=== PATIENT | female | born 1970 | race Caucasian/White ===

== ENCOUNTER 2019-07-04 07:43 | Day surgery (SDC) | payer MEDICARE, MEDICAID, SELFPAY ==
[2019-06-30 13:14] VITALS: BMI 27.2
--- NOTE | 2019-06-30 13:44 | ANES.PREANES ---
Pre-Anesthetic Assessment Pre-Anesthetic Assessment: Height/Weight: Height 1.57 m Weight 67.585 kg Proposed Procedure: Operation Date: 07/04/19 10:25 Proposed Procedures p Hysteroscopy w/ Ablation w/ Novasure 11700/ N92.1(Not Applicable) - Shekhar Anne MD Social: Social History: Tobacco and No alcohol Exam: Pre-Anes Outpt Exam: alert, oriented x 3 and regular rate & rhythm Additional Exam Findings (including area of procedure): lungs wheezy Airway: Submandibular: WNL Cervical ROM: WNL MP: 2 Dentition: False and Full History/ROS: No significant history except as noted Pulmonary: Pulmonary: COPD and PRITCHARD CV/HEM: CV/HEM: HTN : : None reported Hepatic: Hepatic: None reported GI: GI: GERD (occ) Metabolic: Metabolic: Hyperlipidemia Musc/skel: Musc/skel: Lower Back Pain and OA/DJD Neuropsych: Neuropsych: Anxiety and Depression Anesthetic Plan: ASA status: III Anesthesia: Anesthesia Evaluation and MAC Risk of > 500 ml blood loss (7ml/kg in children): No PFSH Anesthesia PFSH: Family History (Updated 06/30/19 @ 13:01 by [employer]) Father Hypertension Diabetes Grandfather Heart disease paternal Hypertension paternal Grandmother Breast cancer paternal Family/Other Ovarian cancer paternal aunt Mother Diabetes Social History Smoking and tobacco status: current every day smoker cigarettes Packs smoked per day: 1 Alcohol intake: never Substance/Drug Use: never Female Reproductive History: Date of last menstrual period: 06/29/19 Data Anesthesia Cardiac Studies: No Data to Display
[2019-06-30 14:03] LABS: Basophils # 0.1 10^3/uL (0.0-0.1); Basophils % 0.7 %; Eosinophils # 0.1 10^3/uL (0.0-0.8); Hematocrit 40.8 % (37.0-47.0); Hemoglobin 13.7 g/dL (11.5-15.3); Lymphocytes # 2.6 10^3/uL (0.8-4.8); Lymphocytes % 29.2 %; Mean Corpuscular HGB Conc 33.6 g/dL (30.0-36.0); Mean Corpuscular Hemoglobin 31.6 pg (28.0-34.0); Mean Platelet Volume 10.5 fL (7.4-10.4); Monocytes # 0.5 10^3/uL (0.2-0.9); Monocytes % 5.1 %; Neutrophils # 5.6 10^3/uL (1.8-7.7); Neutrophils % 63.5 %; Nucleated Red Blood Cells % 0 %; Platelet Count 290 10^3/cmm (130-400); Red Blood Count 4.34 10^6/uL (4.1-5.3); Red Cell Distribution Width 12.2 % (12.1-15.1); White Blood Count 8.8 10^3/uL (4.0-10.0)
[2019-07-04 08:04] VITALS: BP 115/73; PULSE 84; RESP 18; TEMP -13.2; TEMP 8.3; O2SAT 99
[2019-07-04] MEDS: sodium chloride 0.9% 1,000 ML 30 ML IV (08:24)
[2019-07-04] MEDS: ketorolac 30 mg/mL INJ IVP (08:25)
[2019-07-04 08:35] LABS: OR HCG Qualitative Urine Negative (Negative)
--- NOTE | 2019-07-04 08:40 | P.HPUD_ITS ---
H&P update H&P Update: DATE OF SURGERY/PROCEDURE: 07/04/19 DATE H&P PERFORMED: H&P UPDATE INFORMATION: H&P completed within last 30 days, No changes to prior documentation and H&P is in [facility] [place] on date indicated PREOP DIAGNOSIS: Menorrhagia with irregular cycles PLANNED PROCEDURE: Operation Date: 07/04/19 09:15 Proposed Procedures p Hysteroscopy w/ Ablation w/ Novasure 41824/ N92.1(Not Applicable) - Shekhar Anne MD Full H&P Medications/Allergies: Current Medications: Current Medications Generic Name Dose Route Start Last Admin Trade Name Freq PRN Reason Stop Dose Admin Sodium Chloride 1,000 mls @ 30 ml s/hr 07/04/19 08:00 07/04/19 08:24 Sodium Chloride 0.9% IV 07/05/19 07:59 30 mls/hr .Q24H GRAZYNA Administration Perinent History: Medical/Surgical History: Medical History (Updated 07/02/19 @ 20:54 by Shekhar Anne MD) Back pain (Acute) 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 Chronic obstructive pulmonary disease (Acute) Depression with anxiety (Acute) Fibromyalgia (Acute) Gastroesophageal reflux disease (Acute) Glaucoma (Acute) Bilateral Hyperlipidemia (Acute) Hypertension, essential (Acute) Migraine headache (Acute) Family History: Family History Father Hypertension Diabetes Grandfather Heart disease paternal Hypertension paternal Stroke Paternal Grandmother Breast cancer paternal Family/Other Ovarian cancer paternal aunt Mother Diabetes Social History: Social History Smoking and tobacco status: current every day smoker cigarettes Packs smoked per day: 1 Alcohol intake: never
--- NOTE | 2019-07-04 10:20 | PM.OP ---
Operative Report Date of procedure: 07/04/19 Pre-op Diagnosis: Menorrhagia with irregular cycles Post-op diagnosis: same Procedure Done: Hysteroscopy with endometrial ablation with NovaSure, Paracervical block Specimens removed/disposition: None Surgeon: Shekhar Anne Anesthesia: MAC Estimated blood loss (mL): 2 IV fluids (mL): 700 Complications: None Condition: stable Disposition: other (Home) Brief History: Patient is a 49-year-old white female 3, para 2-0-1-2 with an LMP of 06/29/2019 who presented to the office as a referral from Saray Marquis due to heavy irregular cycles. At her visit she had reported multiple bleeding episodes per month for the last 3 to 4 months. Her last bleeding episode at her evaluation in April had been going on for 45 days. The bleeding would vary from light spotting to heavy and during the heavy time she was passing up to dime size clots. She had also noticed increased cramping with this as well. Ultrasound showed a normal endometrial cavity And findings suspicious for small fibroids. An office hysteroscopy was performed with a normal-appearing endometrial cavity. She had an endometrial biopsy performed which was also negative. At this point patient had decided proceed to endometrial ablation. Procedure: The patient was taken to the operating room where IV sedation was obtained. She was prepped and draped in the usual sterile fashion in the dorsal supine position with legs in Jaciel style stirrups. Sequential compression boots had been placed prior to starting the case. Patient had voided just before coming to the operating room. Exam under anesthesia was performed and the patient was noted to have first to second-degree uterine prolapse. A weighted speculum was placed in the vagina and the cervix was grasped with a single-tooth tenaculum. A paracervical block was performed with a total of 12 mL of 2% lidocaine with epinephrine used. The cervix was serially dilated until a operative hysteroscope could be passed. Crystalloid solution was used as a distention media. The endometrial cavity was inspected and appeared normal. Using the NovaSure sound, endometrial cavity length was measured at 6.0 cm. The NovaSure device was inserted and device was deployed. The device was moved up and down and left and right until no further with adjustment occurred. Uterine width was measured at 4.0 cm. Settings were entered in the NovaSure machine and wattage was set at 132 Jarrett. Cavity integrity check was performed and integrity confirmed. Device was then activated. Total treatment time was 60 seconds. Device was removed. The tenaculum was removed and there was minimal bleeding from the tenaculum site. Patient tolerated the procedure well. Sponge and needle counts were correct. COMPLICATIONS: None FINDINGS: Normal-appearing endometrial cavity. First to second-degree uterine prolapse noted. POSTOPERATIVE STATUS: The patient was transferred to the recovery room in satisfactory condition DISPOSITION: Discharge to home when criteria was met. FOLLOWUP APPOINTMENT: Followup appointment had been scheduled on July 27, 2019 in my office. MEDICATIONS: Patient to continue her usual home medications. She already has prescriptions for pain medications for home.
[2019-07-04 10:25] VITALS: BP 109/67; PULSE 84; RESP 18; TEMP 36.4; O2SAT 98
[2019-07-04 10:55] VITALS: BP 119/81; PULSE 69; RESP 18; O2SAT 100
[2019-07-04 10:58] VITALS: RESP 18
[2019-07-04] MEDS: oxyCODONE-APAP 5-325 mg Tablet PO (10:58)
== END 2019-07-04 11:41 | disposition home or self-care (01) ==
PROVIDERS: Family Provider Nurse Practitioner; PCP Nurse Practitioner; Visit Provider Obstetrics & Gynecology
PROC: 0U598ZZ Destruction of Uterus, Via Natural or Artificial Opening Endoscopic (ICD-10-PCS; CPT 58563; principal; 2019-07-04 09:15)
DX: N92.0 Excessive and frequent menstruation with regular cycle (principal); M79.7 Fibromyalgia; K21.9 Gastro-esophageal reflux disease without esophagitis; Z83.3 Family history of diabetes mellitus; Z82.49 Family history of ischemic heart disease and other diseases of the circulatory system; F17.210 Nicotine dependence, cigarettes, uncomplicated; J44.9 Chronic obstructive pulmonary disease, unspecified; I10 Essential (primary) hypertension; E78.5 Hyperlipidemia, unspecified; M19.90 Unspecified osteoarthritis, unspecified site
CPT/HCPCS: 58563; 12345; 36415; 81025; 84703; 85025; 96365; 96374; J1885; J2001; J2704; J3010; J7030

== ENCOUNTER → 2019-07-19 10:47 | Outpatient (BNVA) | payer MEDICARE, MEDICAID, SELFPAY | PROVIDERS: Family Provider Nurse Practitioner; PCP Nurse Practitioner; Visit Provider Anesthesiology | DX: M54.2 Cervicalgia (principal); M54.9 Dorsalgia, unspecified; F17.210 Nicotine dependence, cigarettes, uncomplicated; Z79.891 Long term (current) use of opiate analgesic | CPT/HCPCS: 99214 ==

== ENCOUNTER → 2019-10-27 10:47 | Outpatient (BNVA) | payer MEDICARE, MEDICAID, SELFPAY | PROVIDERS: Family Provider Nurse Practitioner; PCP Nurse Practitioner; Visit Provider Nurse Practitioner | DX: I10 Essential (primary) hypertension (principal); E55.9 Vitamin D deficiency, unspecified; F41.8 Other specified anxiety disorders; M79.7 Fibromyalgia; E78.5 Hyperlipidemia, unspecified; K21.9 Gastro-esophageal reflux disease without esophagitis; J30.9 Allergic rhinitis, unspecified; R58 Hemorrhage, not elsewhere classified; Z12.39 Encounter for other screening for malignant neoplasm of breast; K59.01 Slow transit constipation | CPT/HCPCS: 80053; 80061; 82306; 82607; 84443; 85025 ==

== ENCOUNTER → 2019-11-21 09:24 | Outpatient (BNVA) | payer MEDICARE, MEDICAID, SELFPAY | PROVIDERS: Family Provider Nurse Practitioner; PCP Nurse Practitioner; Visit Provider Anesthesiology | DX: M54.2 Cervicalgia (principal); M54.41 Lumbago with sciatica, right side; M54.42 Lumbago with sciatica, left side; M54.9 Dorsalgia, unspecified; F17.210 Nicotine dependence, cigarettes, uncomplicated; Z79.891 Long term (current) use of opiate analgesic; Z79.1 Long term (current) use of non-steroidal anti-inflammatories (NSAID) | CPT/HCPCS: 99214 ==

== ENCOUNTER → 2020-01-19 09:03 | Outpatient (BNVA) | payer MEDICARE, MEDICAID, SELFPAY | PROVIDERS: Family Provider Nurse Practitioner; PCP Nurse Practitioner; Visit Provider Anesthesiology | DX: M54.42 Lumbago with sciatica, left side (principal); M54.41 Lumbago with sciatica, right side; M54.9 Dorsalgia, unspecified; F17.210 Nicotine dependence, cigarettes, uncomplicated; Z79.891 Long term (current) use of opiate analgesic; Z71.6 Tobacco abuse counseling | CPT/HCPCS: 99214 ==

== ENCOUNTER 2020-02-01 15:06 | Outpatient (CLI) | payer MEDICARE, MEDICAID, SELFPAY ==
--- NOTE | 2020-02-01 15:45 | US_ITS ---
WS: [id number] Subcutaneous ultrasound of the medial right elbow., 02/01/2020. Clinical Data: Right AC muscle tender and nodule Comparison: None. Findings: Only normal subcutaneous tissue is seen. There are no cysts or masses. There is no fluid retained wit hin the tissues. US/US soft tissue/extremity [id number] Impression: Negative subcutaneous ultrasound of the medial right elbow.
== END 2020-02-01 15:07 | disposition home or self-care (01) ==
LOC: US 15:07
PROVIDERS: PCP Nurse Practitioner; Visit Provider Nurse Practitioner
DX: M79.89 Other specified soft tissue disorders (principal)
CPT/HCPCS: 76882

== ENCOUNTER → 2020-03-14 08:05 | Outpatient (BNVA) | payer MEDICARE, MEDICAID, SELFPAY | PROVIDERS: PCP Nurse Practitioner; Visit Provider Anesthesiology | DX: M54.9 Dorsalgia, unspecified (principal); F17.210 Nicotine dependence, cigarettes, uncomplicated; Z79.891 Long term (current) use of opiate analgesic | CPT/HCPCS: 99213; 99214 ==

== ENCOUNTER → 2020-05-15 09:01 | Outpatient (BNVA) | payer MEDICARE, MEDICAID, SELFPAY | PROVIDERS: PCP Nurse Practitioner; Visit Provider Anesthesiology | DX: M54.42 Lumbago with sciatica, left side (principal); M54.41 Lumbago with sciatica, right side; M54.2 Cervicalgia; M54.9 Dorsalgia, unspecified; F17.210 Nicotine dependence, cigarettes, uncomplicated; Z79.891 Long term (current) use of opiate analgesic; Z79.1 Long term (current) use of non-steroidal anti-inflammatories (NSAID) | CPT/HCPCS: 99213; 99214 ==

== ENCOUNTER → 2020-06-24 15:37 | Outpatient (BNVA) | payer MEDICARE, MEDICAID, SELFPAY | PROVIDERS: PCP Nurse Practitioner; Visit Provider Nurse Practitioner | DX: I10 Essential (primary) hypertension (principal); J44.9 Chronic obstructive pulmonary disease, unspecified | CPT/HCPCS: 80053; 80061; 85025 ==

== ENCOUNTER → 2020-07-16 08:47 | Outpatient (BNVA) | payer MEDICARE, MEDICAID, SELFPAY | PROVIDERS: PCP Nurse Practitioner; Visit Provider Anesthesiology | DX: M54.9 Dorsalgia, unspecified (principal); F17.210 Nicotine dependence, cigarettes, uncomplicated; Z79.891 Long term (current) use of opiate analgesic | CPT/HCPCS: 99213 ==

== ENCOUNTER → 2020-09-10 08:02 | Outpatient (BNVA) | payer MEDICARE, MEDICAID, SELFPAY | PROVIDERS: PCP Nurse Practitioner; Visit Provider Anesthesiology | DX: G89.29 Other chronic pain (principal); M54.9 Dorsalgia, unspecified; M54.2 Cervicalgia; M79.7 Fibromyalgia; F17.210 Nicotine dependence, cigarettes, uncomplicated; Z79.891 Long term (current) use of opiate analgesic | CPT/HCPCS: 99214 ==

== ENCOUNTER → 2020-11-19 08:14 | Outpatient (BNVA) | payer MEDICARE, MEDICAID, SELFPAY | PROVIDERS: PCP Nurse Practitioner; Visit Provider Anesthesiology | DX: G89.29 Other chronic pain (principal); M54.9 Dorsalgia, unspecified; M54.2 Cervicalgia; F17.210 Nicotine dependence, cigarettes, uncomplicated; Z79.891 Long term (current) use of opiate analgesic | CPT/HCPCS: 99214 ==

== ENCOUNTER → 2020-12-06 10:04 | Outpatient (BNVA) | payer MEDICARE, MEDICAID, SELFPAY | PROVIDERS: PCP Nurse Practitioner; Visit Provider Nurse Practitioner | DX: E78.5 Hyperlipidemia, unspecified (principal); J44.9 Chronic obstructive pulmonary disease, unspecified; F41.8 Other specified anxiety disorders; K59.01 Slow transit constipation; T63.441A Toxic effect of venom of bees, accidental (unintentional), initial encounter; J30.1 Allergic rhinitis due to pollen; R07.9 Chest pain, unspecified; G43.909 Migraine, unspecified, not intractable, without status migrainosus; K21.9 Gastro-esophageal reflux disease without esophagitis; E55.9 Vitamin D deficiency, unspecified; M79.7 Fibromyalgia; I10 Essential (primary) hypertension | CPT/HCPCS: 80053; 80061; 81003; 82306; 82607; 84443; 85025 ==

== ENCOUNTER → 2021-01-17 08:44 | Outpatient (BNVA) | payer MEDICARE, MEDICAID, SELFPAY | PROVIDERS: PCP Nurse Practitioner; Visit Provider Nurse Practitioner | DX: G89.29 Other chronic pain (principal); M54.5 Low back pain; M54.2 Cervicalgia; M19.90 Unspecified osteoarthritis, unspecified site; F17.210 Nicotine dependence, cigarettes, uncomplicated; Z79.891 Long term (current) use of opiate analgesic; Z71.6 Tobacco abuse counseling | CPT/HCPCS: 99214 ==

== ENCOUNTER 2021-02-07 07:22 | Outpatient (CLI) | payer MEDICARE, MEDICAID, SELFPAY ==
[2021-02-07 07:38] VITALS: BMI 28.1
--- NOTE | 2021-02-07 07:54 | ECG_ITS ---
[facility] Test Date: 2021-02-07 Pat Name: Shanique Avila Department: Room: Gender: Female Labels Molder: : 1970 Requested By: Nicol Villarreal Order Number: [id number] Aliyah MD: Nicol Villarreal M.D. Interpretive Statements NAME OF STUDY: EXERCISE SESTAMIBI STRESS TEST INDICATION: Chest Pain Baseline blood pressure of 115/71 mm Hg, heart rate of 78 beats per minute and oxygen saturation 97%. EKG showed normal sinus rhythm, right axis deviation with normal ST-Ts. The patient exercised for 3 minutes 46 seconds on a standard Manny protocol. Patient attained a maximum heart rate of 161 beats per minute(94% of the maximum predicted heart rate) with a blood pressure at the peak exercise of 198/72 mm Hg and oxygen saturation 97%. The EKG at the peak exercise revealed sinus tachycardia with no significant ST-T wave changes. Patient did not have any chest pain or any significant arrhythmis with the exercise. Patient experienced lightheadedness and slight chest tightness during recovery and symptoms resolved by discharge. During the recovery phase, there were no new changes. Blood pressure at the end of the recovery phase was 128/68 mm Hg with a heart rate of 92 beats per minute and oxygen saturation 98%. CONCLUSION: 1. Normal EKG response to treadmill exercise. 2. No significant exercise-induced chest pain or cardiac arrhythmia 3. Decreased exercise tolerance for age, attained a maximum of 7 METs. Maximum VO2 of 24.5 mL/kg/min. 4. Baseline normal blood pressure with exaggerated blood pressure and heart rate response to exercise. 5. Perfusion scan will be documented separately. Electronically Signed On 03-27-2021 12:31:58 CDT by Nicol Villarreal M.D. [id number]
--- NOTE | 2021-02-07 07:54 | NMCV_ITS ---
NM sayra perf SPECT r/s* [id number] Shanique Avila Age: 50 Gender: F : 1970 Exam Date: 02/07/2021 08:41 Ordering Phys: Nicol Villarreal MD ([email or web address]) Technologist: MAX Calderon Exam Location: [facility] Indications: CHEST PAIN STRESS TEST Please see separate stress test report in [facility] for full findings IMAGE PROTOCOL Rest/Stress 1 Exercise Day Radiopharmaceutical Dose (mCi) Administration Site Administered by Rest: Tc-99m 10.5 IV MAX Calderon Sestamibi Stress:Tc-99m 32.6 IV MAX Calderon Sestamibi Rest: 60 Discovery 630 Stress: 15 Discovery 630 Radiopharmaceutical was injected at 90% maximum heart rate. Images obtained in supine and prone position. SPECT RESULTS Technical Quality: Excellent Raw Data Analysis: Normal Image Corrections: No attenuation or motion correction applied Summed Stress Score: 0 Summed Rest Score: 0 Summed Difference Score: 0 PERFUSION FINDINGS SPECT images demonstrate homogeneous tracer distribution throughout the myocardium. FUNCTIONAL RESULTS (calculated via Gated SPECT) Stress Image LV EF (%): 78 Stress EDV (mL):65 TID: 0.94 Stress ESV (mL):14 FUNCTIONAL FINDINGS: The left ventricle is normal in size. Transient Ischemia Dilatation of 0.94. There is normal left ventricular systolic function. The left ventricular ejection fraction is normal with a value of 78%. There is normal left ventricular wall thickening with no regional wall motion abnormality. Normal end diastolic and end sytolic volumes. IMPRESSIONS 1. Myocardial perfusion imaging is normal. 2. Overall left ventricular systolic function is normal without regional wall motion abnormalities. 3. The left ventricular ejection fraction is normal with a value of 78%. 4. EKG portion of the study will be reported separately. Nicol Villarreal MD (Electronically Signed) Final Date: 10 February 2021 11:25 S
[2021-02-07 10:00] VITALS: BP 128/68; PULSE 89
== END 2021-02-07 07:23 | disposition home or self-care (01) ==
LOC: CDL 07:24
PROVIDERS: PCP Nurse Practitioner; Visit Provider Internal Medicine Cardiovascular Disease
DX: R07.9 Chest pain, unspecified (principal); R06.09 Other forms of dyspnea
CPT/HCPCS: 78452; 93017; A9500

== ENCOUNTER → 2021-02-12 08:52 | Outpatient (BNVA) | payer MEDICARE, MEDICAID, SELFPAY | PROVIDERS: PCP Nurse Practitioner; Visit Provider Nurse Practitioner | DX: G89.29 Other chronic pain (principal); M54.5 Low back pain; M54.2 Cervicalgia; M19.90 Unspecified osteoarthritis, unspecified site; F17.210 Nicotine dependence, cigarettes, uncomplicated; Z79.891 Long term (current) use of opiate analgesic; Z71.6 Tobacco abuse counseling | CPT/HCPCS: 99213; 99214 ==

== ENCOUNTER → 2021-04-18 08:20 | Outpatient (BNVA) | payer MEDICARE, MEDICAID, SELFPAY | PROVIDERS: PCP Nurse Practitioner; Visit Provider Anesthesiology | DX: G89.29 Other chronic pain (principal); M54.50 Low back pain, unspecified; M54.2 Cervicalgia; M25.519 Pain in unspecified shoulder; Z79.891 Long term (current) use of opiate analgesic; F17.200 Nicotine dependence, unspecified, uncomplicated; Z71.6 Tobacco abuse counseling | CPT/HCPCS: 99214 ==

== ENCOUNTER → 2021-05-27 14:58 | Outpatient (BNVA) | payer MEDICARE, MEDICAID, SELFPAY | PROVIDERS: PCP Nurse Practitioner; Visit Provider Nurse Practitioner | DX: I10 Essential (primary) hypertension (principal) | CPT/HCPCS: 80053; 80061; 84443 ==

== ENCOUNTER → 2021-06-18 08:00 | Outpatient (BNVA) | payer MEDICARE, MEDICAID, SELFPAY | PROVIDERS: PCP Nurse Practitioner; Visit Provider Anesthesiology | DX: G89.29 Other chronic pain (principal); M54.2 Cervicalgia; M54.50 Low back pain, unspecified; F17.210 Nicotine dependence, cigarettes, uncomplicated; Z79.891 Long term (current) use of opiate analgesic | CPT/HCPCS: 99214 ==

== ENCOUNTER → 2021-07-17 07:54 | Outpatient (BNVA) | payer MEDICARE, MEDICAID, SELFPAY | PROVIDERS: PCP Nurse Practitioner; Visit Provider Anesthesiology | DX: G89.29 Other chronic pain (principal); M54.50 Low back pain, unspecified; M54.2 Cervicalgia; F17.210 Nicotine dependence, cigarettes, uncomplicated; Z79.891 Long term (current) use of opiate analgesic | CPT/HCPCS: 99214 ==

== ENCOUNTER → 2021-09-22 10:54 | Outpatient (BNVA) | payer MEDICARE, MEDICAID, SELFPAY | PROVIDERS: PCP Nurse Practitioner; Referring Provider Nurse Practitioner; Visit Provider Specialist | DX: F17.210 Nicotine dependence, cigarettes, uncomplicated (principal); M67.432 Ganglion, left wrist | CPT/HCPCS: 73110; 99203; 99204 ==

== ENCOUNTER 2021-10-28 09:54 | Outpatient (CLI) | payer MEDICARE, MEDICAID, SELFPAY ==
--- NOTE | 2021-10-28 10:15 | MR_ITS ---
WS: [id number] MRI LUMBAR SPINE NONCONTRAST TECHNIQUE: Sagittal T1, T2 and STIR imaging. Axial T1 and T2 imaging. CLINICAL INFORMATION: ABNORMAL REFLEX/RADICULOPATHY LUMBAR REGION COMPARISON: MRI 2015 FINDINGS: Mild lumbar curve. No acute compression. No high-grade central canal stenosis. Alignment is unchanged since 2015. Small central protrusion T8-T9 seen on the automotive glazier imaging with slight contact of the thor acic cord. L1-L2: Minimal annular bulging. Spinal canal and foramen are patent. Mild facet arthropathy. L2-L3: No significant disc bulging. Tiny LEFT foraminal protrusion with mild LEFT foraminal narrowing . Slight narrowing of the LEFT subarticular recess. Mild facet arthropathy. L3-L4: Mild annular bulging. Small LEFT foraminal protrusion with mild LEFT foraminal narrowing. Spin al canal is patent. Mild facet arthropathy. L4-L5: Mild disc bulging with narrowing of subarticular recess bilaterally. Small bilateral foraminal protrusions with mild bilateral foraminal narrowing, LEFT greater than RIGHT. L5-S1: No significant disc bulging. Spinal canal and foramen are patent. Mild facet arthropathy. Partially evaluated RIGHT ovarian follicles/cysts largest measuring 12 mm. MR/MR lumbar spine wo con* [id number] IMPRESSION: 1. Mild lumbar curve. No acute compression. No high-grade central canal stenos is. 2. Small bilateral foraminal protrusions L4-L5 with mild LEFT greater than RIG HT foraminal narrowing. This is similar in appearance to previous. 3. Small foraminal protrusions with mild LEFT L2-L3 and LEFT L3-L4 foraminal n arrowing slightly progressed compared to previous. 4. Moderate facet arthropathy L3-L5. 5. Tiny central protrusion thoracic spine automotive glazier imaging at T8-T9 with slight c ontact of the thoracic cord.
--- NOTE | 2021-10-28 11:45 | MR_ITS ---
WS: [id number] MRI CERVICAL SPINE NONCONTRAST TECHNIQUE: Sagittal T1, T2 and STIR imaging. Axial T2, gradient, and fiesta imaging. CLINICAL INFORMATION: ABNORMAL REFLEX/CERVICAL RADICULOPATHY COMPARISON: MRI 6 FINDINGS: Straightening of the normal cervical lordosis. Mild disc bulging worse at C6-C7 with a tiny annular f issure and small LEFT pericentral protrusion. This appears new from 2008. C2-C3: Mild facet arthropathy. Spinal canal and foramen are patent. C3-C4: Mild disc osteophytic ridging. Mild bilateral bony foraminal narrowing. Mild facet arthropathy . Spinal canal is patent. C4-C5: Mild disc osteophytic ridging. Mild LEFT and no significant RIGHT foraminal narrowing. Mild fa cet arthropathy. Spinal canal is patent. C5-C6: Shallow central disc protrusion. Slight effacement of ventral thecal sac. Mild facet arthropat hy. Mild LEFT and no significant RIGHT bony foraminal narrowing. C6-C7: Shallow LEFT pericentral protrusion with indentation LEFT ventral cervical cord. Mild central canal stenosis. Moderate LEFT and no significant RIGHT foraminal narrowing. Mild facet arthropathy. C7-T1: No significant disc bulging. Mild LEFT and no significant RIGHT bony foraminal narrowing. Mild facet arthropathy. Spinal canal is patent. Visualized brain stem structures: Normal. Prevertebral soft tissues: Normal. MR/MR cervical spin wo con* [id number] IMPRESSION: 1. Straightening of the normal cervical lordosis. Cord signal is normal. 2. LEFT pericentral disc protrusion C6-C7 with a small annular fissure and sli ght contact of the LEFT ventral cervical cord. Mild central canal stenosis at t his level. This is new from 2008. 3. Moderate LEFT C6-C7 bony foraminal narrowing. 4. Shallow central protrusion C5-C6. 5. Mild bony foraminal narrowing LEFT C5-C6.
== END 2021-10-28 09:55 | disposition home or self-care (01) ==
LOC: RAD 09:57
PROVIDERS: PCP Nurse Practitioner; Visit Provider Registered Nurse
DX: M54.12 Radiculopathy, cervical region (principal); M54.16 Radiculopathy, lumbar region; R29.2 Abnormal reflex; Z72.0 Tobacco use; M50.223 Other cervical disc displacement at C6-C7 level; M51.24 Other intervertebral disc displacement, thoracic region; M51.26 Other intervertebral disc displacement, lumbar region; M48.02 Spinal stenosis, cervical region; M47.816 Spondylosis without myelopathy or radiculopathy, lumbar region
CPT/HCPCS: 72141; 72148

== ENCOUNTER → 2021-11-11 09:30 | Outpatient (BNVA) | payer MEDICARE, MEDICAID, SELFPAY | PROVIDERS: PCP Nurse Practitioner; Visit Provider Nurse Practitioner | DX: M25.511 Pain in right shoulder (principal); M25.512 Pain in left shoulder; N83.201 Unspecified ovarian cyst, right side; Z12.39 Encounter for other screening for malignant neoplasm of breast; I10 Essential (primary) hypertension; E55.9 Vitamin D deficiency, unspecified | CPT/HCPCS: 73030; 80053; 80061 ==

== ENCOUNTER 2021-12-11 15:08 | Outpatient (CLI) | payer MEDICARE, MEDICAID, SELFPAY ==
--- NOTE | 2021-12-11 16:00 | MR_ITS ---
WS: [id number] MRI LEFT WRIST without CONTRAST. COMPARISON: Radiograph 09/22/2021. Multiplanar, multisequence imaging is performed without contrast. History: Palpable area LEFT wrist for 2 to 3 months. LEFT hand and arm numbness. Palpable area along the volar radial surface. Surrounding the flexor carpi radialis tendon is increased T2 signal and fluid extending over a lengt h of 2.4 cm. Multilocular collection with a few areas of low signal on the T2 sequences. No edema or tear within the tendon. No tendon tear identified. Multiple small loculations of variable signal inte nsity is noted within the distal fluid collection. There is additional very small cyst along the dorsal surface of the flexor digitorum profundus tendon at the level of the hamate and capitate. The small cyst measures 4 x 3 mm and may be an additional g anglion. TFCC appears intact and normal. Scapholunate ligament is normal. No fractures or marrow renetta a. MR/MR wrist LT wo con* [id number] IMPRESSION: 1. Multi locular cystic mass with a few low-level echoes corresponds to the pa lpable abnormality along the volar surface of the radial side of the wrist. Thi s encases the flexor carpi radialis tendon extends over length of 2.4 cm. Most consistent with a ganglion. Alternative diagnosis would be a nerve sheath tumor although thought less likely. 2. Additional very small ganglion measuring 4 x 3 mm suspected along the dorsa l surface of the flexor digitorum profundus tendon sheath.
== END 2021-12-11 15:09 | disposition home or self-care (01) ==
LOC: RAD 15:08
PROVIDERS: PCP Nurse Practitioner; Visit Provider Specialist
DX: M67.432 Ganglion, left wrist (principal)
CPT/HCPCS: 73221

== ENCOUNTER 2022-01-21 06:45 | Outpatient (CLI) | payer MEDICARE, MEDICAID, SELFPAY ==
--- NOTE | 2022-01-21 07:29 | MM_ITS ---
WS: [email or web address] Bilateral screening 3D tomosynthesis digital mammogram, 01/21/2022 Clinical Data: Z12.39 - Encounter for other screening for malignant neop... Comparison: 03/25/2012, 03/13/2011. Findings: The breast parenchymal pattern shows fibroglandular tissue. No spiculated masses or clustered calcifi cations are seen. There are no secondary signs of carcinoma. MM/[place] [id number] Impression: 1. Negative bilateral mammogram unchanged. 2. Recommend annual screening mammograms. BIRADS: 1-Negative FOLLOW UP: 1 Year Follow-up The CAD aligning checker was used.
== END 2022-01-21 06:46 | disposition home or self-care (01) ==
LOC: RAD 06:46
PROVIDERS: PCP Nurse Practitioner; Visit Provider Nurse Practitioner
DX: Z12.31 Encounter for screening mammogram for malignant neoplasm of breast (principal)
CPT/HCPCS: 77063; 77067

== ENCOUNTER 2022-01-21 06:45 | Outpatient (CLI) | payer MEDICARE, MEDICAID, SELFPAY ==
--- NOTE | 2022-01-21 07:15 | US_ITS ---
WS: [email or web address] Pelvic ultrasound, 01/21/2022 Clinical Data: N83.201 - Unspecified ovarian cyst, right side Comparison: Pelvic ultrasound, 04/11/2019. Findings: The uterus measures 7.7 cm x 4.4 cm x 3.6 cm. Uterus shows heterogeneous echogenicity. The endometrium is 0.5 cm. No intrauterine or abnormal intrauterine mass is seen. The left ovary is obscured by bowel gas. The right ovary measures 3.0 cm x 2.6 cm x 1.1 cm with no cy sts or masses. There is minimal fluid in the cul-de-sac. No abnormal adnexal masses are seen. US/US pelvic with transvaginal Impression: 1. Heterogeneous uterus. 2. Left ovary obscured by bowel gas. 3. Minimal fluid in the cul-de-sac.
== END 2022-01-21 06:46 | disposition home or self-care (01) ==
LOC: RAD 06:46
PROVIDERS: PCP Nurse Practitioner; Visit Provider Nurse Practitioner
DX: N83.201 Unspecified ovarian cyst, right side (principal)
CPT/HCPCS: 76830; 76856

== ENCOUNTER → 2022-02-12 14:59 | Outpatient (BNVA) | payer MEDICARE, MEDICAID, SELFPAY | PROVIDERS: PCP Nurse Practitioner; Referring Provider Specialist; Visit Provider Specialist | DX: M67.432 Ganglion, left wrist (principal); M25.532 Pain in left wrist | CPT/HCPCS: 95908; 95909 ==

== ENCOUNTER → 2022-02-23 10:51 | Outpatient (BNVA) | payer MEDICARE, MEDICAID, SELFPAY | PROVIDERS: PCP Nurse Practitioner; Visit Provider Specialist | DX: M67.432 Ganglion, left wrist (principal) | CPT/HCPCS: 99214 ==

== ENCOUNTER → 2022-03-17 11:34 | Outpatient (BNVA) | payer MEDICARE, MEDICAID, SELFPAY | PROVIDERS: PCP Nurse Practitioner; Visit Provider Nurse Practitioner | DX: J44.9 Chronic obstructive pulmonary disease, unspecified (principal); E78.5 Hyperlipidemia, unspecified; F41.8 Other specified anxiety disorders; E55.9 Vitamin D deficiency, unspecified; I10 Essential (primary) hypertension; R58 Hemorrhage, not elsewhere classified; M79.7 Fibromyalgia; R00.0 Tachycardia, unspecified; J30.1 Allergic rhinitis due to pollen; K59.01 Slow transit constipation; K21.9 Gastro-esophageal reflux disease without esophagitis | CPT/HCPCS: 80053; 80061; 82306; 83721; 84443 ==

== ENCOUNTER 2022-04-13 08:33 | Outpatient (CLI) | payer MEDICARE, MEDICAID, SELFPAY ==
--- NOTE | 2022-04-13 08:38 | MR_ITS ---
WS: [email or web address] INDICATION: Mass in the wrist. Swelling 3rd finger with numbness. TECHNIQUE: Axial T1, axial T2, coronal T1, coronal STIR, sagittal T2, axial T2, coronal 3-D FSPGR, mu ltiplanar post gadolinium imaging with fat saturation technique. COMPARISON: MRI December 11, 2021 FINDINGS: Previously described tiny cyst along the dorsal flexor digitorum profundus tendons at the l evel of the carpal bones is no longer seen today. T2 signal abnormality along the flexor carpi radial is with peripheral enhancement is unchanged in appearance. A few associated septations. This likely r epresents small ganglion cyst. No suspicious abnormalities along the additional palpable marker at the level of the 3rd proximal pha lanx. Normal underlying soft tissues. TFCC appears intact. Normal scaphoid and lunate. Normal scapholunate ligaments. MR/MR hand LT wo/w con [id number] IMPRESSION: 1. Previously described tiny cyst along the dorsal flexor digitorum digitorum profundus at the level of the carpal bones is no longer seen today. 2. Stable peripherally enhancing ganglion cyst along the flexor carpi radialis unchanged in appearance. 3. No suspicious abnormalities alonga the additional palpable marker at the le shasha of the 3rd proximal phalanx. Normal underlying soft tissues and bone marrow signal.
[2022-04-13] MEDS: gadobenate dimeglumine 20 mL vial IV (10:43)
== END 2022-04-13 08:34 | disposition home or self-care (01) ==
LOC: RAD 08:34
PROVIDERS: PCP Nurse Practitioner; Visit Provider Specialist
DX: M67.432 Ganglion, left wrist (principal); M19.90 Unspecified osteoarthritis, unspecified site
CPT/HCPCS: 73220

== ENCOUNTER → 2022-06-22 10:02 | Outpatient (BNVA) | payer MEDICARE, MEDICAID, SELFPAY | PROVIDERS: PCP Nurse Practitioner; Visit Provider Nurse Practitioner | DX: E78.5 Hyperlipidemia, unspecified (principal); E55.9 Vitamin D deficiency, unspecified | CPT/HCPCS: 80053; 80061; 82306; 84443 ==

== ENCOUNTER → 2022-09-14 09:34 | Outpatient (BNVA) | payer MEDICARE, MEDICAID, SELFPAY | PROVIDERS: PCP Nurse Practitioner; Visit Provider Nurse Practitioner | DX: I10 Essential (primary) hypertension (principal); E55.9 Vitamin D deficiency, unspecified | CPT/HCPCS: 80053; 80061; 82306 ==

== ENCOUNTER 2023-01-26 09:51 | Outpatient (CLI) | payer MEDICARE, MEDICAID, SELFPAY ==
--- NOTE | 2023-01-26 09:57 | MM_ITS ---
WS: [email or web address] BILATERAL 3D TOMOSYNTHESIS DIGITAL SCREENING MAMMOGRAPHY WITH CAD CLINICAL INFORMATION: SCREENING HISTORY: Screening mammogram. No current complaints. COMPARISON: 2021 TECHNIQUE: Bilateral CC and MLO views. FINDINGS: Scattered fibroglandular densities bilaterally. Lucent centered calcification LEFT breast. Incidental punctate calcifications. Slightly spiculated lesion upper outer RIGHT breast measuring 7 mm. Recomme nd further evaluation with RIGHT breast diagnostic mammography and ultrasound. LEFT breast is unchanged. IMPRESSION: MM/[place] [id number] BI-RADS: 0-Incomplete: Need additional imaging evaluation FOLLOW UP: Need Additional Imaging Recommend RIGHT breast diagnostic mammography and ultrasound.
== END 2023-01-26 09:52 | disposition home or self-care (01) ==
LOC: RAD 09:55 → MOBLMAM 09:56
PROVIDERS: PCP Nurse Practitioner; Visit Provider Nurse Practitioner
DX: Z12.31 Encounter for screening mammogram for malignant neoplasm of breast (principal)
CPT/HCPCS: 77063; 77067

== ENCOUNTER → 2023-03-01 09:00 | Outpatient (BNVA) | payer MEDICARE, MEDICAID, SELFPAY | PROVIDERS: PCP Nurse Practitioner; Visit Provider Nurse Practitioner | DX: E66.3 Overweight (principal); J44.9 Chronic obstructive pulmonary disease, unspecified; F41.8 Other specified anxiety disorders; E55.9 Vitamin D deficiency, unspecified; N95.1 Menopausal and female climacteric states; E78.5 Hyperlipidemia, unspecified; I10 Essential (primary) hypertension; R58 Hemorrhage, not elsewhere classified; M79.7 Fibromyalgia; E88.81 Metabolic syndrome and other insulin resistance; R00.0 Tachycardia, unspecified; K59.01 Slow transit constipation; K21.9 Gastro-esophageal reflux disease without esophagitis; G43.909 Migraine, unspecified, not intractable, without status migrainosus; M19.90 Unspecified osteoarthritis, unspecified site | CPT/HCPCS: 80053; 80061; 82306; 83735 ==

== ENCOUNTER 2023-04-15 13:25 | Outpatient (CLI) | payer MEDICARE, MEDICAID, SELFPAY ==
--- NOTE | 2023-04-15 13:34 | MM_ITS ---
WS: [email or web address] RIGHT 3D TOMOSYNTHESIS DIGITAL MAMMOGRAPHY WITH CAD CLINICAL INFORMATION: R92.8 - Other abnormal and inconclusive findings on diagn... HISTORY: Additional views COMPARISON: 01/26/2023 TECHNIQUE: 3 views of the right breast were obtained. FINDINGS: Scattered fibroglandular densities of the right breast. Previously described slightly spiculated asym metric density upper outer quadrant RIGHT breast measuring 7 mm mostly compresses out on the spot com pression views today. Ultrasound described below. ULTRASOUND BREAST RIGHT TECHNIQUE: Ultrasound right breast focused area of concern. CLINICAL INFORMATION: R92.8 - Other abnormal and inconclusive findings on diagn... FINDINGS: Ultrasound RIGHT breast upper outer quadrant. Normal underlying parenchymal tissue. No cystic or hamilton d lesions. No suspicious lesions to target for biopsy. Recommend return to annual screen mammography IMPRESSION: MM/[place] [id number] BI-RADS: 2-Benign FOLLOW UP: 1 Year Follow-up Recommend return to annual screening mammography.
--- NOTE | 2023-04-15 14:00 | US_ITS ---
WS: [email or web address] RIGHT 3D TOMOSYNTHESIS DIGITAL MAMMOGRAPHY WITH CAD CLINICAL INFORMATION: R92.8 - Other abnormal and inconclusive findings on diagn... HISTORY: Additional views COMPARISON: 01/26/2023 TECHNIQUE: 3 views of the right breast were obtained. FINDINGS: Scattered fibroglandular densities of the right breast. Previously described slightly spiculated asym metric density upper outer quadrant RIGHT breast measuring 7 mm mostly compresses out on the spot com pression views today. Ultrasound described below. ULTRASOUND BREAST RIGHT TECHNIQUE: Ultrasound right breast focused area of concern. CLINICAL INFORMATION: R92.8 - Other abnormal and inconclusive findings on diagn... FINDINGS: Ultrasound RIGHT breast upper outer quadrant. Normal underlying parenchymal tissue. No cystic or hamilton d lesions. No suspicious lesions to target for biopsy. Recommend return to annual screen mammography IMPRESSION: US/US breast RT limited* [id number] BI-RADS: 2-Benign FOLLOW UP: 1 Year Follow-up Recommend return to annual screening mammography.
== END 2023-04-15 13:26 | disposition home or self-care (01) ==
LOC: RAD 13:26
PROVIDERS: PCP Nurse Practitioner; Visit Provider Nurse Practitioner
DX: R92.8 Other abnormal and inconclusive findings on diagnostic imaging of breast (principal)
CPT/HCPCS: 76642; 77061; G0279

== ENCOUNTER → 2023-07-26 16:11 | Outpatient (BNVA) | payer MEDICARE, MEDICAID, SELFPAY | PROVIDERS: PCP Nurse Practitioner; Visit Provider Nurse Practitioner | DX: R10.9 Unspecified abdominal pain (principal) | CPT/HCPCS: 74018 ==

== ENCOUNTER → 2023-08-09 10:36 | Outpatient (BNVA) | payer MEDICARE, MEDICAID, SELFPAY | PROVIDERS: PCP Nurse Practitioner; Visit Provider Nurse Practitioner | DX: F41.8 Other specified anxiety disorders; I10 Essential (primary) hypertension; E55.9 Vitamin D deficiency, unspecified | CPT/HCPCS: 80053; 80061; 82306; 82607; 84443; 85025 ==

== ENCOUNTER → 2024-02-22 09:38 | Outpatient (BNVA) | payer MEDICARE, MEDICAID, SELFPAY | PROVIDERS: PCP Nurse Practitioner; Visit Provider Nurse Practitioner | DX: I10 Essential (primary) hypertension (principal); E78.5 Hyperlipidemia, unspecified | CPT/HCPCS: 80053; 80061; 84443; 85025 ==

== ENCOUNTER → 2024-08-01 11:05 | Outpatient (BNVA) | payer MEDICARE, MEDICAID, SELFPAY | PROVIDERS: PCP Nurse Practitioner; Visit Provider Nurse Practitioner | DX: E78.5 Hyperlipidemia, unspecified (principal); I10 Essential (primary) hypertension; E55.9 Vitamin D deficiency, unspecified | CPT/HCPCS: 80053; 80061; 82306; 82607; 84443 ==

== ENCOUNTER 2024-10-04 18:53 | Emergency (ER) | payer OTHER, MEDICAID, SELFPAY ==
[2024-10-04 19:01] VITALS: BP 132/57; PULSE 105; TEMP 36.5; O2SAT 97; BMI 28.5
--- NOTE | 2024-10-04 19:10 | ECG_ITS ---
[facility] [place] Date: 2024-10-04 Pat Name: Shanique Avila Department: Room: Gender: Female [employer]: : 1970 Requested By: Hayley Neal Order Number: [id number] Aliyah MD: Suhail Choi M.D. Measurements Intervals [place] Rate: 66 P: 52 NE: 171 QRS: 73 QRSD: 91 T: 57 QT: 391 QTc: 412 Interpretive Statements SINUS RHYTHM LOW QRS VOLTAGE IN PRECORDIAL LEADS [QRS DEFLECTION < 1.0 mV IN CHEST LEADS] No previous ECG available for comparison Electronically Signed On 10-09-2024 10:15:16 CDT by Suhail Choi M.D. [email or web address]
--- NOTE | 2024-10-04 19:23 | CTR_ITS ---
PROCEDURE INFORMATION: Exam: CTA Chest With Contrast Exam date and time: 10/04/2024 7:47 PM Age: 54 years old Clinical indication: Pain; Chest pressure; Additional info: Left shoulder pain, pcp concerned for pe TECHNIQUE: Imaging protocol: Computed tomographic angiography of the chest with contrast. Exam focused on the arteries. 3D rendering (Not supervised by radiologist): MIP and/or 3D reconstructed images were created by the technologist. Radiation optimization: All CT scans at this facility use at least one of these dose optimization techniques: automated exposure control; mA and/or kV adjustment per patient size (includes targeted exams where dose is matched to clinical indication); or iterative reconstruction. Contrast material: OMNIPAQUE 350; Contrast volume: 100 ml; Contrast route: INTRAVENOUS (IV); COMPARISON: MR cervical spin wo con* [id number] 10/28/2021 10:35 AM RADIATION DOSE METRICS: Total DLP (mGy-cm): 384.08 FINDINGS: Pulmonary arteries: Normal. No pulmonary emboli. Aorta: Unremarkable. No aortic aneurysm. No aortic dissection. Lungs: Mild centrilobular emphysema with upper lobe predominance. No focal consolidation. 5 mm right lower lobe nodule on series 7, image 225. Mild bibasilar atelectasis. Bronchial wall thickening with scattered inspissated secretions, most pronounced in the lower lobes. Pleural spaces: Unremarkable. No pneumothorax. No pleural effusion. Heart: Unremarkable. No cardiomegaly. No pericardial effusion. Lymph nodes: Calcified right hilar lymph nodes. No lymphadenopathy by size criteria. Spleen: Benign calcified splenic granulomas. Bones/joints: Moderate degenerative changes of the mid to lower thoracic spine. No acute or aggressive osseous lesion. Soft tissues: Unremarkable. CT/CT angio chest PE protcl [id number] IMPRESSION: 1. No evidence of pulmonary embolism. 2. Bronchial wall thickening with inspissated secretions in the lower lobes. 3. Mild centrilobular emphysema. 4. 5 mm right lower lobe nodule. For patients at low risk (minimal or absent history of smoking and of other known risk factors), no routine follow-up is indicated. For patients at high risk (history of smoking or of other known risk factors), consider optional CT Chest at 12 months. (Reference: Lydia) COMMENTS: The presence of pulmonary emphysema on CT is an independent risk factor for lung cancer. In the absence of a history or active diagnosis of lung cancer, it is recommended that this patient with emphysema be evaluated for enrollment in a low dose CT lung cancer screening program. REFERENCES: Lydia Wright, et al. Guidelines for Management of Incidental Pulmonary Nodules Detected on CT Images: From the Fleischner Society 2017. Radiology. 2017;284(1):228-243.
--- NOTE | 2024-10-04 19:23 | W.ED.EXTPRO ---
HPI - Extremity Problem General: Chief complaint: Extremity Problem,Nontraumatic Stated complaint: Left Shoulder and Jaw Pain Time Seen by Provider: 10/04/24 19:12 History of Present Illness: 54-year-old female with a history of tobacco dependence, COPD, chronic pain syndrome on oxycodone, hypertension, migraines, depression and anxiety, hypertension and chronic shoulder pain who presents to the emergency room with shoulder pain. She saw her PCP yesterday who thought she might have a PE. She has had no shortness of breath. She is not tachycardic. O2 sats are good. She is not short of breath. She says pain in her shoulder is positional. Worse when her arm is down or moved. But better when she holds her arm above her head. No fevers. No cough. No altered mental status. No abdominal pain. No nausea or vomiting. She was told to go to the emergency room yesterday when she went saw her PCP but it was raining too hard so she came to the emergency room tonight. Related Data Home Medications ?Medication ?Instructions ?Recorded ?Confirmed melatonin 3 mg capsule 3 mg PO ONCE 06/28/19 10/03/24 Previous Rx's ?Medication ?Instructions ?Recorded travoprost 0.004 % eye drops 1 drp ophthalmic (eye) ONCE #5 mL 04/03/22 (Travatan Z) epinephrine 0.3 mg/0.3 mL 0.3 mg (0.3 mL) IM ONCE PRN 09/14/22 injection, auto-injector (EpiPen Allergic Reaction #1 ea 2-Arthur) nitroglycerin 0.4 mg sublingual 0.4 mg sublingual Q5M PRN chest 05/28/23 tablet pain #25 tabs sumatriptan succinate 4 mg/0.5 mL 4 mg (0.5 mL) SUBCUT .one time PRN 08/09/23 subcutaneous cartridge (refill) Migraine Headache #1 mL sodium chloride 0.65 % nasal spray 2 spray intranasal QID PRN dry 10/25/23 aerosol (Saline Nasal) nasal passages #44 mL albuterol sulfate 2.5 mg/3 mL 2.5 mg (3 mL) inhalation Q4H PRN 05/16/24 (0.083 %) solution for nebulization Shortness Of Breath #75 mL albuterol sulfate 90 mcg/actuation 2 puff inhalation QID PRN 05/16/24 aerosol inhaler (Ventolin HFA) Shortness Of Breath #18 grams doxepin 25 mg capsule 25 mg PO TID PRN anxiety #90 caps 05/16/24 ergocalciferol (vitamin D2) 1,250 1,250 mcg PO .weekly #4 caps 05/16/24 mcg (50,000 unit) capsule estradiol 1 mg tablet (Estrace) 1 mg PO DAILY #30 tabs 05/16/24 furosemide 20 mg tablet (Lasix) 20 mg PO QAM #30 tabs 05/16/24 hydrocortisone 2.5 % topical cream 1 applic PA TID PRN hemorrhoids 05/16/24 with perineal applicator #30 grams (Anusol-HC) icosapent ethyl 1 gram capsule 2 g (2 x 1 gram) PO BID #120 caps 05/16/24 (Vascepa) linaclotide 145 mcg capsule 145 mcg PO QAM #30 caps 05/16/24 (Linzess) magnesium oxide 400 mg PO BID #60 tabs 05/16/24 metformin 500 mg tablet,extended 2,000 mg (4 x 500 mg) PO DAILY 05/16/24 release 24 hr #120 tabs metoprolol succinate 25 mg 25 mg PO DAILY #30 tabs 05/16/24 tablet,extended release 24 hr (Toprol XL) montelukast 10 mg tablet 10 mg PO QDAY #30 tabs 05/16/24 pantoprazole 40 mg tablet,delayed 40 mg PO DAILY #30 tabs 05/16/24 release (Protonix) potassium chloride 8 mEq 8 meq PO DAILY #30 caps 05/16/24 capsule,extended release sucralfate 1 gram tablet (Carafate) 1 g PO .4 times day #120 tabs 05/16/24 tizanidine 4 mg tablet 4 mg PO BID PRN muscle spasticity 05/16/24 #60 tabs zonisamide 50 mg capsule 50 mg PO BID #60 caps 05/16/24 prednisone 20 mg tablet See Rx Instructions PO BID #18 tabs 07/25/24 budesonide 160 mcg-glycopyr 9 2 inh inhalation BID #10.7 grams 08/01/24 mcg-formot 4.8 mcg/actuation HFA inhaler (Breztri Aerosphere) cholecalciferol (vitamin D3) 125 5,000 unit PO QDAY #30 caps 08/01/24 mcg (5,000 unit) capsule venlafaxine 150 mg 150 mg PO DAILY #30 caps 08/01/24 capsule,extended release 24 hr (Effexor XR) rosuvastatin 40 mg tablet 40 mg PO DAILY #30 tabs 08/03/24 oxycodone 10 mg tablet 10 mg PO QID PRN pain 30 days #120 09/08/24 tabs dexamethasone 6 mg tablet 6 mg PO DAILY 5 days #5 tabs 10/04/24 Allergies Allergy/AdvReac Type Severity Reaction Status Date / Time dextromethorphan (From Allergy Severe anaphylaxis Verified 10/04/24 19:07 NyQuil) doxylamine (From NyQuil) Allergy Severe anaphylaxis Verified 10/04/24 19:07 pseudoephedrine (From NyQuil) Allergy Severe anaphylaxis Verified 10/04/24 19:07 doxycycline Allergy Hives, Verified 10/04/24 19:07 difficulty breathing Review of Systems Narrative: Constitutional symptoms: Negative except as documented in HPI. Skin symptoms: Negative except as documented in HPI. Eye symptoms: Negative except as documented in HPI. ENMT symptoms: Negative except as documented in HPI. Respiratory symptoms: Negative except as documented in HPI. Cardiovascular symptoms: Negative except as documented in HPI. Gastrointestinal symptoms: Negative except as documented in HPI. Genitourinary symptoms: Negative except as documented in HPI. Musculoskeletal symptoms: Negative except as documented in HPI. Neurologic symptoms: Negative except as documented in HPI. Psychiatric symptoms: Negative except as documented in HPI. Endocrine symptoms: Negative except as documented in HPI. PFSH ED PFSH: Medical History Melena Chronic idiopathic constipation Metabolic syndrome Spondylosis Spinal osteophytosis Tachycardia Chronic shoulder pain Chronic neck and back pain Personal history of nicotine dependence Allergic reaction to bee sting Encounter for long-term (current) use of NSAIDs Vitamin D deficiency Other specified anxiety disorders Allergic rhinitis due to pollen Slow transit constipation Opioid contract exists Encounter for long-term use of opiate analgesic Glaucoma Bilateral Chronic obstructive pulmonary disease Gastroesophageal reflux disease Migraine headache Depression with anxiety Hypertension, essential Hyperlipidemia Back pain Multilevel Fibromyalgia 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 Dx: Menorrhagia. [place] [facility] [place] post surgery (~01/2019) Removal of 2 benign tumors from back Status post eye surgery (03/29/18) Removal of cancer from right eye History of surgery on arm (~2011) Left History of surgery on arm (~2006) Right S/P section (~1990) Hx of tonsillectomy Family History Father Hypertension Diabetes Grandfather Heart disease paternal Hypertension paternal Stroke Paternal Grandmother Breast cancer paternal Family/Other Ovarian cancer paternal aunt Mother Diabetes Social History Smoking and tobacco/nicotine status: current every day tobacco/nicotine user cigarettes Packs smoked per day: 1 Second hand smoke exposure: Yes Alcohol intake: never Substance/Drug Use: never Adopted: No Caregiver/support person: No Lives independently: Yes Household members: spouse Housing: House Marital status: Number of children: 2 service: No Current occupational status: disabled Pets and animals: Yes Do you think of yourself as: Straight/Heterosexual Current gender identity: Female Physical Exam Narrative: EXAM NARRATIVE: General: Alert, no acute distress. Skin: Warm, dry. Head: Normocephalic, atraumatic. Neck: Supple, trachea midline. Eye: Extraocular movements are intact. Ears, nose, mouth and throat: mucosa moist. Cardiovascular: Regular, Normal peripheral perfusion. Respiratory: Lungs are clear to auscultation, respirations are non-labored, breath sounds are equal, Symmetrical chest wall expansion. Gastrointestinal: Soft, Nontender, Non distended Musculoskeletal: Normal ROM, no deformity. Neurological: Alert and oriented, No focal neurological deficit observed. Psychiatric: Cooperative, appropriate mood & affect. Course Vital Signs: Vital signs: Vital Signs Temperature 97.7 F 10/04/24 19:01 Pulse Rate 105 H 10/04/24 19:01 Blood Pressure 132/57 10/04/24 19:01 Pulse Oximetry 97 10/04/24 19:01 Oxygen Delivery Me thod Room Air 10/04/24 19:01 MDM - Extremity (Nontraumatic) Medical Decision Making Differential diagnosis for patient with chest pain includes but is not limited to and based on the above HPI, review of systems and physical exam: Pneumonia. unstable angina. angina. Acute coronary syndrome / AK. Pulmonary embolism. Costochondritis / musculoskeletal. Pleurisy. Pericarditis. Esophageal spasm. Pancreatis. Cholecystitis. Orders placed to evaluate differential diagnosis based on the above differential, HPI and physical exam EKG: Time 1909. Rate 66. Normal sinus rhythm, No ST-T changes, no ectopy, normal PA & QRS intervals, This was reviewed and interpreted by myself the ER physician at 191 Lab Review: Laboratory results were reviewed and interpreted by myself the emergency room physician. No leukocytosis. No anemia. No renal failure. proBNP is negative. Liver enzymes are normal. CT of the chest PE protocol: No pulmonary embolism. Some bronchial wall thickening and emphysema. Pulmonary nodule. This was reviewed and interpreted by myself the emergency room physician. I also reviewed the radiology report. I reviewed the patient's medical record. Reexamination: Patient remained stable. No increased work of breathing. No altered mental status. No focal motor deficits. Assessment and plan: Shoulder pain Tobacco dependence ? Solu-Medrol and Toradol in the emergency room. Patient is on oxycodone therapy at home. - Discharged home - Discussed plan with patient. Answered any questions. - Evaluation and treatment of this problem were appropriate in the emergency setting. Lab Data 10/04/24 19:19 10/04/24 19:19 Radiology Impressions Chest CTA 10/04/24 19:23 IMPRESSION: 1. No evidence of pulmonary embolism. 2. Bronchial wall thickening with inspissated secretions in the lower lobes. 3. Mild centrilobular emphysema. 4. 5 mm right lower lobe nodule. For patients at low risk (minimal or absent history of smoking and of other known risk factors), no routine follow-up is indicated. For patients at high risk (history of smoking or of other known risk factors), consider optional CT Chest at 12 months. (Reference: Lydia) COMMENTS: The presence of pulmonary emphysema on CT is an independent risk factor for lung cancer. In the absence of a history or active diagnosis of lung cancer, it is recommended that this patient with emphysema be evaluated for enrollment in a low dose CT lung cancer screening program. REFERENCES: Lydia Wright et al. Guidelines for Management of Incidental Pulmonary Nodules Detected on CT Images: From the Fleischner Society 2017. Radiology. 2017;284(1):228-243. Laboratory Results WBC 10.00 10^3/uL (3.29-11.43) 10/04/24 19:19 RBC 4.40 10^6/uL (3.85-5.65) 10/04/24 19:19 Hgb 13.40 g/dL (11.27-16.99) 10/04/24 19:19 Hct 41.0 % (36-47) 10/04/24 19:19 MCV 93.2 fl (85-98) 10/04/24 19:19 MCH 30.5 pg (27-33) 10/04/24 19:19 MCHC 32.7 g/dL (30-55) 10/04/24 19:19 RDW 12.6 % (12.1-15.1) 10/04/24 19:19 Plt Count 261 10^3/cmm (157-399) 10/04/24 19:19 MPV 10.0 fL (7.4-10.4) 10/04/24 19:19 Neut % (Auto) 54.0 % 10/04/24 19:19 Lymph % (Auto) 36.8 % 10/04/24 19:19 Stephens % (Auto) 5.9 % 10/04/24 19:19 Eos % (Auto) 2.0 % 10/04/24 19:19 Baso % (Auto) 1.0 % 10/04/24 19:19 Neut # (Auto) 5.40 10^3/uL (1.8-7.7) 10/04/24 19:19 Lymph # (Auto) 3.7 10^3/uL (0.8-4.8) 10/04/24 19:19 Stephens # (Auto) 0.6 10^3/uL (0.2-0.9) 10/04/24 19:19 Eos # (Auto) 0.2 10^3/uL (0.0-0.8) 10/04/24 19:19 Baso # (Auto) 0.1 10^3/uL (0.0-0.1) 10/04/24 19:19 Nucleated RBC % (auto) 0 % 10/04/24 19:19 Nucleated RBCs # 0.0 /100WBC 10/04/24 19:19 Sodium 139 mmol/L (136-145) 10/04/24 19:19 Potassium 3.8 mmol/L (3.5-5.1) 10/04/24 19:19 Chloride 106 mmol/L (98-107) 10/04/24 19:19 Carbon Dioxide 19 mmol/L (22-29) L 10/04/24 19:19 Anion Gap 17.8 (5-19) 10/04/24 19:19 BUN 8 mg/dL (6-20) 10/04/24 19:19 Creatinine 0.8 mg/dL (0.5-0.9) 10/04/24 19:19 GFR Calculation 75.0 mL/min (90-130) L 10/04/24 19:19 Glucose 106 mg/dL (65-115) 10/04/24 19:19 Calculated Osmolality 287 mOsm/kg (285-295) 10/04/24 19:19 Lactic Acid 1.9 mmol/L (0.5-2.2) 10/04/24 19:19 Calcium 9.1 mg/dL (8.5-10.5) 10/04/24 19:19 Total Bilirubin 0.2 mg/dL (0.15-1.2) 10/04/24 19:19 AST 15 U/L (0-32) 10/04/24 19:19 ALT 17 U/L (0-33) 10/04/24 19:19 Alkaline Phosphatase 79 U/L (35-105) 10/04/24 19:19 Troponin T Baseline < 6 ng/L (0-10) 10/04/24 19:19 NT-Pro-B Natriuret Pep 49 pg/mL (0-125) 10/04/24 19:19 Total Protein 6.6 g/dL (6.6-8.7) 10/04/24 19:19 Albumin 4.4 g/dL (3.5-5.2) 10/04/24 19:19 Globulin 2.2 g/dL (1.3-4.6) 10/04/24 19:19 All radiology interpretation(s) finalized by discharge Discharge Plan Discharge Patient Disposition: Home Clinical Impression: Pulmonary nodule, Shoulder pain, left Condition: Stable Prescriptions: New dexamethasone 6 mg tablet 6 mg PO DAILY 5 Days Qty: 5 0RF No Action melatonin 3 mg capsule 3 mg PO ONCE Travatan Z 0.004 % drops 1 drp ophthalmic (eye) ONCE Qty: 5 5RF epinephrine [EpiPen 2-Arthur] 0.3 mg/0.3 mL auto-injector 0.3 mg IM ONCE PRN (Reason: Allergic Reaction) Qty: 1 2RF Saline Nasal 0.65 % aerosol,spray 2 spray intranasal QID PRN (Reason: dry nasal passages) Qty: 44 2RF albuterol sulfate 2.5 mg /3 mL (0.083 %) solution for nebulization 2.5 mg INHALATION Q4H PRN (Reason: Shortness Of Breath) Qty: 75 5RF albuterol sulfate [Ventolin HFA] 90 mcg/actuation HFA aerosol inhaler 2 puff INHALATION QID PRN (Reason: Shortness Of Breath) Qty: 18 5RF doxepin 25 mg capsule 25 mg PO TID PRN (Reason: anxiety) Qty: 90 5RF ergocalciferol (vitamin D2) 1,250 mcg (50,000 unit) capsule 1,250 mcg PO .weekly Qty: 4 5RF estradiol [Estrace] 1 mg tablet 1 mg PO DAILY Qty: 30 5RF furosemide [Lasix] 20 mg tablet 20 mg PO QAM Qty: 30 5RF hydrocortisone [Anusol-HC] 2.5 % cream with perineal applicator 1 applic PA TID PRN (Reason: hemorrhoids) Qty: 30 5RF icosapent ethyl [Vascepa] 1 gram capsule 2 g PO BID Qty: 120 5RF Linzess 145 mcg capsule 145 mcg PO QAM Qty: 30 5RF magnesium oxide 400 mg magnesium tablet 400 mg PO BID Qty: 60 5RF metformin 500 mg tablet extended release 24 hr 2,000 mg PO DAILY Qty: 120 5RF metoprolol succinate [Toprol XL] 25 mg tablet extended release 24 hr 25 mg PO DAILY Qty: 30 5RF montelukast 10 mg tablet 10 mg PO QDAY Qty: 30 5RF pantoprazole [Protonix] 40 mg tablet,delayed release (DR/EC) 40 mg PO DAILY Qty: 30 5RF potassium chloride 8 mEq capsule, extended release 8 meq PO DAILY Qty: 30 5RF Rx Instructions: take with Lasix sucralfate [Carafate] 1 gram tablet 1 g PO .4 times day Qty: 120 5RF tizanidine 4 mg tablet 4 mg PO BID PRN (Reason: muscle spasticity) Qty: 60 5RF zonisamide 50 mg capsule 50 mg PO BID Qty: 60 5RF venlafaxine [Effexor XR] 150 mg capsule,extended release 24hr 150 mg PO DAILY Qty: 30 2RF Rx Instructions: stop Prozac and Wellbutrin cholecalciferol (vitamin D3) 125 mcg (5,000 unit) capsule 5,000 unit PO QDAY Qty: 30 5RF Breztri Aerosphere 160-9-4.8 mcg/actuation HFA aerosol inhaler 2 inh inhalation BID Qty: 10.7 2RF sumatriptan succinate 4 mg/0.5 mL cartridge 4 mg SUBCUT .one time PRN (Reason: Migraine Headache) Qty: 1 2RF prednisone 20 mg tablet See Rx Instructions PO BID Qty: 18 0RF Rx Instructions: 3 po qday x 3 days, then 2 po qday x 3 days, the 1 po qday x 3 days. nitroglycerin 0.4 mg tablet, sublingual 0.4 mg sublingual Q5M PRN (Reason: chest pain) Qty: 25 0RF Rx Instructions: do not exceed 3 doses per episode rosuvastatin 40 mg tablet 40 mg PO DAILY Qty: 30 5RF oxycodone 10 mg tablet 10 mg PO QID PRN (Reason: pain) 30 Days Qty: 120 0RF Discharge Orders: Discharge ED (Routine); Ordered 10/04/24 Ordered By: Hayley Elliott Referrals: Saray Marquis, [facility] [Primary Care Provider, Family Practice] Discharge Diet: Usual diet Discharge Activity: Increase activity as tolerated Patient Instructions: Pulmonary Nodules (ED), Shoulder Pain (ED), Opioid Safety, Pain Management Activity Restrictions/Additional Instructions: A pulmonary nodule was seen on imaging. This will need follow up imaging with your primary provider. Please schedule an appointment concerning this. Thank you for choosing [facility] for your healthcare needs today. You have been screened and evaluated and felt safe for discharge. Health conditions do change or evolve sometimes and as such it is important that you follow up with your Primary Doctor to be re checked, 3-5 days is a general good time frame for follow up. You are always welcome to return to the ED for re assessment if your symptoms are worsening or you have new concerns Print Language: Romanian Coding Level of Care Code ED Test Clerk for [place]
[2024-10-04 19:32] LABS: Basophils # 0.1 10^3/uL (0.0-0.1); Eosinophils # 0.2 10^3/uL (0.0-0.8); Lymphocytes # 3.7 10^3/uL (0.8-4.8); Lymphocytes % 36.8 %; Mean Corpuscular HGB Conc 32.7 g/dL (30-55); Mean Corpuscular Hemoglobin 30.5 pg (27-33); Mean Corpuscular Volume 93.2 fl (85-98); Monocytes # 0.6 10^3/uL (0.2-0.9); Monocytes % 5.9 %; Nucleated Red Blood Cells % 0 %; Platelet Count 261 10^3/cmm (157-399); Red Cell Distribution Width 12.6 % (12.1-15.1)
[2024-10-04] MEDS: iohexol 350 mg/mL 500 mL Btl (per mL) IV (19:52)
[2024-10-04 19:57] LABS: Lactic Sepsis W/Reflex 1.9 mmol/L (0.5-2.2)
[2024-10-04 19:58] LABS: Troponin(5th) Baseline < 6 ng/L (0-10)
[2024-10-04 20:08] LABS: Alanine Aminotransferase 17 U/L (0-33); Albumin Level 4.4 g/dL (3.5-5.2); Alkaline Phosphatase 79 U/L (35-105); Anion Gap 17.8 (5-19); Aspartate Amino Transferase 15 U/L (0-32); Blood Urea Nitrogen 8 mg/dL (6-20); Calcium 9.1 mg/dL (8.5-10.5); Carbon Dioxide 19 mmol/L (22-29); Chloride 106 mmol/L (98-107); Creatinine Clr Calc Pharmacy 74.9309; Globulin 2.2 g/dL (1.3-4.6); Glucose 106 mg/dL (65-115); NT Pro B Type Natriuretic Pept 49 pg/mL (0-125); Osmolality Calculated 287 mOsm/kg (285-295); Potassium 3.8 mmol/L (3.5-5.1); Sodium 139 mmol/L (136-145); Total Bilirubin 0.2 mg/dL (0.15-1.2); Total Protein 6.6 g/dL (6.6-8.7)
[2024-10-04] MEDS: methylPREDNISolone sod succ 125 mg/2 mL INJ IVP (20:46)
[2024-10-04] MEDS: ketorolac 30 mg/mL INJ IVP (20:46)
[2024-10-04 20:50] VITALS: BP 110/66; PULSE 57; RESP 16; O2SAT 97
[2024-10-04 21:18] VITALS: BP 110/61; PULSE 68; RESP 16; O2SAT 97
== END 2024-10-04 21:19 | disposition home or self-care (01) ==
PROVIDERS: Emergency Provider Emergency Medicine; PCP Nurse Practitioner
DX: M25.512 Pain in left shoulder (principal); I10 Essential (primary) hypertension; F17.210 Nicotine dependence, cigarettes, uncomplicated; R91.1 Solitary pulmonary nodule; Z79.84 Long term (current) use of oral hypoglycemic drugs; Z85.828 Personal history of other malignant neoplasm of skin
CPT/HCPCS: 71275; 80053; 83605; 83880; 84484; 85025; 93005; 96374; 96375; 99285; J1885; J2919

== ENCOUNTER → 2025-01-01 11:32 | Outpatient (BNVA) | payer OTHER, MEDICAID, SELFPAY | PROVIDERS: PCP Nurse Practitioner; Visit Provider Nurse Practitioner | DX: I10 Essential (primary) hypertension (principal) | CPT/HCPCS: 80053; 80061; 85025 ==

== ENCOUNTER → 2025-03-26 11:09 | Outpatient (BNVA) | payer OTHER, MEDICAID, SELFPAY | PROVIDERS: PCP Nurse Practitioner; Visit Provider Nurse Practitioner | DX: E78.5 Hyperlipidemia, unspecified (principal); E55.9 Vitamin D deficiency, unspecified; R19.5 Other fecal abnormalities | CPT/HCPCS: 80053; 80061; 82306; 84443; 85025 ==

== ENCOUNTER → 2025-03-27 12:11 | Outpatient (BNVA) | payer OTHER, MEDICAID, SELFPAY | PROVIDERS: PCP Nurse Practitioner; Visit Provider Nurse Practitioner | DX: R19.5 Other fecal abnormalities (principal) | CPT/HCPCS: 82274 ==

== ENCOUNTER → 2025-04-11 09:12 | Outpatient (BNVA) | payer OTHER, MEDICAID, SELFPAY | PROVIDERS: PCP Nurse Practitioner; Visit Provider Surgery | DX: K21.9 Gastro-esophageal reflux disease without esophagitis (principal); K27.9 Peptic ulcer, site unspecified, unspecified as acute or chronic, without hemorrhage or perforation | CPT/HCPCS: 99204 ==

== ENCOUNTER 2025-04-26 09:53 | Day surgery (SDC) | payer OTHER, MEDICAID, SELFPAY ==
[2025-04-26 10:07] VITALS: BMI 28.7
[2025-04-26 10:14] VITALS: BP 157/85; PULSE 80; RESP 165; TEMP 36.6; O2SAT 96
--- NOTE | 2025-04-26 10:16 | P.HPUD_ITS ---
Surgery/Procedure H&P Update DATE OF PROCEDURE: April 26, 2025 DATE H&P PERFORMED: 04/11/25 H&P UPDATE INFORMATION: I have reviewed H&P completed within last 30 days, I have examined patient prior to procedure, No changes to prior documentation, H&P is in [facility] EMR on date indicated and Risks and benefits of the procedure reviewed PLANNED PROCEDURE: Operation Date: 04/26/25 11:30 Proposed Procedures p EGD EGD with Biopsy [id number] G0105 K27.9 Z12.11(Not Applicable) - Billy Ramirez MD s Colonoscopy(Not Applicable) - Billy Ramirez MD
--- NOTE | 2025-04-26 11:16 | ANES.PREANE2 ---
Pre-Anesthetic Assessment Height/Weight: Height 1.57 m Weight 71.214 kg Temp Pulse Resp BP Pulse Ox O2 Del Method 98 F 80 165 H 157/85 96 Room Air 04/26/25 10:14 04/26/25 10:14 04/26/25 10:14 04/26/25 10:14 04/26/25 10:14 04/26/25 10:14 Preop Diagnosis: peptic ulcer, screen Operation Date: 04/26/25 11:30 Proposed Procedures p EGD EGD with Biopsy [id number] G0105 K27.9 Z12.11(Not Applicable) - Billy Ramirez MD s Colonoscopy(Not Applicable) - Billy Ramirez MD Familial anesthetic complications: none Was Beta Joao taken within 24 hours: Yes Was Clonidine taken within 24 hours: N/A Last intake: Intake Last Liquid Date 04/25/25 Last Liquid Time 22:00 Last Solid Date 04/24/25 Last Solid Time 18:00 Social Tobacco Exam alert, oriented x 3, clear to auscultation bilaterally and regular rate & rhythm Airway Cervical ROM: Other (decreased) Mallampati: Class II Dentition: false Pulmonary Chronic Obstructive Pulmonary Disease albuterol preop CV/HEM None reported None reported Hepatic None reported GI Gastroesophageal Reflux Disease Metabolic None reported Musc/skel None reported Neuropsych Headache Anesthetic Plan ASA status: 3 Anesthesia: MAC Risk of > 500 ml blood loss (7ml/kg in children): No Medications/Allergies Home Medications ?Medication ?Instructions ?Recorded ?Confirmed ?Last Taken ?Type melatonin 3 mg capsule 10 mg PO BEDTIME PRN Insomnia 06/28/19 04/23/25 04/22/25 History travoprost 0.004 % eye drops 1 drp ophthalmic (eye) ONCE #5 mL 04/03/22 04/23/25 04/25/25 Rx (Travatan Z) epinephrine 0.3 mg/0.3 mL 0.3 mg (0.3 mL) IM ONCE PRN 09/14/22 04/23/25 Unknown Rx injection, auto-injector (EpiPen Allergic Reaction #1 ea 2-Arthur) nitroglycerin 0.4 mg sublingual 0.4 mg sublingual Q5M PRN chest 05/28/23 04/23/25 Unknown Rx tablet pain #25 tabs sumatriptan succinate 4 mg/0.5 mL 4 mg (0.5 mL) SUBCUT .one time PRN 08/09/23 04/23/25 3 Months Ago Rx subcutaneous cartridge (refill) Migraine Headache #1 mL ~01/21/25 hydrocortisone 2.5 % topical cream 1 applic ND TID PRN hemorrhoids 10/09/24 04/23/25 04/17/25 Rx with perineal applicator #30 grams (Anusol-HC) budesonide 160 mcg-glycopyr 9 2 inh inhalation BID #10.7 grams 01/01/25 04/23/25 04/25/25 Rx mcg-formot 4.8 mcg/actuation HFA inhaler (Breztri Aerosphere) zonisamide 100 mg capsule 100 mg PO BID #60 caps 01/01/25 04/23/25 04/25/25 Rx (Zonegran) albuterol sulfate 2.5 mg/3 mL 2.5 mg (3 mL) inhalation Q4H PRN 01/05/25 04/23/25 1 Day Ago Rx (0.083 %) solution for nebulization Shortness Of Breath #75 mL ~04/22/25 albuterol sulfate 90 mcg/actuation 2 puff inhalation QID PRN 01/05/25 04/23/25 04/25/25 Rx aerosol inhaler (Ventolin HFA) Shortness Of Breath #18 grams cholecalciferol (vitamin D3) 125 5,000 unit PO QDAY #30 caps 01/05/25 04/23/25 04/25/25 Rx mcg (5,000 unit) capsule doxepin 25 mg capsule 25 mg PO TID PRN anxiety #90 caps 01/05/25 04/23/25 04/25/25 Rx ergocalciferol (vitamin D2) 1,250 1,250 mcg PO .weekly #4 caps 01/05/25 04/23/25 04/25/25 Rx mcg (50,000 unit) capsule estradiol 1 mg tablet (Estrace) 1 mg PO DAILY #30 tabs 01/05/25 04/23/25 04/25/25 Rx furosemide 20 mg tablet (Lasix) 20 mg PO QAM #30 tabs 01/05/25 04/23/25 04/25/25 Rx icosapent ethyl 1 gram capsule 2 g (2 x 1 gram) PO BID #120 caps 01/05/25 04/23/25 04/25/25 Rx (Vascepa) linaclotide 145 mcg capsule 145 mcg PO QAM #30 caps 01/05/25 04/23/25 04/25/25 Rx (Linzess) magnesium oxide 400 mg PO BID #60 tabs 01/05/25 04/23/25 04/25/25 Rx metformin 500 mg tablet,extended 2,000 mg (4 x 500 mg) PO DAILY 01/05/25 04/23/25 04/23/25 Rx release 24 hr #120 tabs metoprolol succinate 25 mg 25 mg PO DAILY #30 tabs 01/05/25 04/23/25 04/25/25 Rx tablet,extended release 24 hr (Toprol XL) montelukast 10 mg tablet 10 mg PO QDAY #30 tabs 01/05/25 04/23/25 04/25/25 Rx potassium chloride 8 mEq 8 meq PO DAILY #30 caps 01/05/25 04/23/25 04/25/25 Rx capsule,extended release rosuvastatin 40 mg tablet 40 mg PO DAILY #30 tabs 01/05/25 04/23/25 04/25/25 Rx sucralfate 1 gram tablet (Carafate) 1 g PO .4 times day #120 tabs 01/05/25 04/23/25 04/25/25 Rx tizanidine 4 mg tablet 4 mg PO BID PRN muscle spasticity 01/05/25 04/23/25 04/25/25 Rx #60 tabs bupropion HCl 150 mg 24 hr tablet, 150 mg PO QAM depression #90 tabs 04/10/25 04/23/25 04/25/25 Rx extended release (Wellbutrin XL) pantoprazole 40 mg tablet,delayed 40 mg PO BID 30 days #60 tabs 04/11/25 04/23/25 04/26/25 06:30 Rx release (Protonix) oxycodone 10 mg tablet 10 mg PO QID PRN pain 30 days #120 04/12/25 04/23/25 04/25/25 Rx tabs Allergies Allergy/AdvReac Type Severity Reaction Status Date / Time dextromethorphan (From Allergy Severe anaphylaxis Verified 04/23/25 09:53 NyQuil) doxylamine (From NyQuil) Allergy Severe anaphylaxis Verified 04/23/25 09:53 pseudoephedrine (From NyQuil) Allergy Severe anaphylaxis Verified 04/23/25 09:53 doxycycline Allergy Hives, Verified 04/23/25 09:53 difficulty breathing Current Medications Generic Name Dose Route Start Last Admin Trade Name Freq PRN Reason Stop Dose Admin Sodium Chloride 1,000 mls @ 15 mls/hr 04/26/25 09:58 04/26/25 10:19 Sodium Chloride 0.9% IV 04/27/25 09:57 15 mls/hr .Q24H PRN Administration COLONOSCOPY FLUIDS PFSH Anesthesia Medical History Melena Chronic idiopathic constipation Metabolic syndrome Spondylosis Spinal osteophytosis Tachycardia Chronic shoulder pain Chronic neck and back pain Personal history of nicotine dependence Allergic reaction to bee sting Encounter for long-term (current) use of NSAIDs Vitamin D deficiency Other specified anxiety disorders Allergic rhinitis due to pollen Slow transit constipation Opioid contract exists Encounter for long-term use of opiate analgesic Glaucoma Bilateral Chronic obstructive pulmonary disease Gastroesophageal reflux disease Migraine headache Depression with anxiety Hypertension, essential Hyperlipidemia Back pain Multilevel Fibromyalgia 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 Dx: Menorrhagia. Performed by [place]. Anne at [facility] [place] Status post surgery (~01/2019) Removal of 2 benign tumors from back Status post eye surgery (03/29/18) Removal of cancer from right eye History of surgery on arm (~2011) Left History of surgery on arm (~2006) Right S/P section (~1990) Hx of tonsillectomy Family History Father Hypertension Diabetes Grandfather Heart disease paternal Hypertension paternal Stroke Paternal Grandmother Breast cancer paternal Family/Other Ovarian cancer paternal aunt Mother Diabetes Social History Smoking and tobacco/nicotine status: current every day tobacco/nicotine user cigarettes Packs smoked per day: 1 Second hand smoke exposure: Yes Alcohol intake: never Substance/Drug Use: never Adopted: No Caregiver/support person: No Lives independently: Yes Household members: spouse Housing: House Marital status: Number of children: 2 service: No Current occupational status: disabled Pets and animals: Yes Do you think of yourself as: Straight/Heterosexual Current gender identity: Female Data Anesthesia Cardiac Studies: Sestamibi Stress Test (Cardiology) 02/07/21
[2025-04-26 12:03] VITALS: BP 91/64; PULSE 76; RESP 16; TEMP 36.1; O2SAT 97
[2025-04-26 12:15] VITALS: BP 107/74; PULSE 82; RESP 16; O2SAT 96
--- NOTE | 2025-04-26 12:31 | ANE.PACU2 ---
Inpatient post-anesthesia follow up: Airway intact: Yes Vital signs: Temperature 97.0 F Pulse Rate 82 Respiratory Rate 16 Blood Pressure 107/74 Pulse Oximetry 96 Oxygen Delivery Me thod Room Air Oxygen Flow Rate Fraction of Inspir ed Oxygen Hydration adequate: Yes Nausea and vomiting: No Pain level: 1 Mental status: Baseline
== END 2025-04-26 12:31 | disposition home or self-care (01) ==
PROVIDERS: PCP Nurse Practitioner; Visit Provider Surgery
PROC: 0DJ08ZZ Inspection of Upper Intestinal Tract, Via Natural or Artificial Opening Endoscopic (ICD-10-PCS; principal; 2025-04-26 11:30)
PROC: 0DJD8ZZ Inspection of Lower Intestinal Tract, Via Natural or Artificial Opening Endoscopic (ICD-10-PCS; CPT 45378; 2025-04-26 11:30)
DX: K21.9 Gastro-esophageal reflux disease without esophagitis (principal); D12.3 Benign neoplasm of transverse colon; K63.5 Polyp of colon; K27.9 Peptic ulcer, site unspecified, unspecified as acute or chronic, without hemorrhage or perforation; K29.80 Duodenitis without bleeding; K29.70 Gastritis, unspecified, without bleeding; K21.00 Gastro-esophageal reflux disease with esophagitis, without bleeding; J44.9 Chronic obstructive pulmonary disease, unspecified; Z79.891 Long term (current) use of opiate analgesic; K92.1 Melena; R00.0 Tachycardia, unspecified; F41.8 Other specified anxiety disorders; E78.5 Hyperlipidemia, unspecified; I10 Essential (primary) hypertension; Z85.840 Personal history of malignant neoplasm of eye; Z80.3 Family history of malignant neoplasm of breast; Z80.41 Family history of malignant neoplasm of ovary; Z82.49 Family history of ischemic heart disease and other diseases of the circulatory system; F17.210 Nicotine dependence, cigarettes, uncomplicated; Z79.84 Long term (current) use of oral hypoglycemic drugs
CPT/HCPCS: 43239; 45380; 88305; J2704; J3535; J7030

== ENCOUNTER → 2025-05-09 09:01 | Outpatient (BNVA) | payer OTHER, MEDICAID, SELFPAY | PROVIDERS: PCP Nurse Practitioner; Visit Provider Surgery | DX: Z51.89 Encounter for other specified aftercare (principal); R03.0 Elevated blood-pressure reading, without diagnosis of hypertension | CPT/HCPCS: 99213 ==